=== PATIENT | female | born 1935 | race Caucasian/White ===

== ENCOUNTER 2023-04-08 08:57 | Emergency (ER) | payer OTHER ==
[~2023-04-08] VITALS: Ht 147.3 cm; Wt 44.5 kg
[2023-04-08 08:57] VITALS: BP 122/66; PULSE 81; RESP 16; TEMP 98.1; O2SAT 94
[~2023-04-08 08:57] MED LIST: QUET50TA PO
[2023-04-08] MEDS ORDERED: ACETAMINOPHEN EXTRA STRENGTH 500 MG TAB PO ONE (11:25)
[2023-04-08] MEDS ORDERED: ACET-10509 PO (11:26)
[2023-04-08 11:53] VITALS: O2SAT 94
== END 2023-04-08 12:32 | disposition home or self-care (01) ==
LOC: MED 08:57
DX: S42.211A Unspecified displaced fracture of surgical neck of right humerus, initial encounter for closed fracture (principal); S09.90XA Unspecified injury of head, initial encounter; W18.30XA Fall on same level, unspecified, initial encounter; Y93.89 Activity, other specified; Y92.89 Other specified places as the place of occurrence of the external cause; Y99.8 Other external cause status
CPT/HCPCS: 70450; 73020; 73060; 99284